=== PATIENT | female | born 1995 | race African-American/Black ===

== ENCOUNTER 2017-11-17 11:44 | Emergency (ER) | payer OTHER ==
[~2017-11-17] VITALS: Ht 157.5 cm; Wt 54.0 kg
[2017-11-17 11:52] VITALS: BP 121/73; PULSE 86; RESP 17; TEMP 97.7; O2SAT 100
== END 2017-11-17 15:40 | disposition left against medical advice (07) ==
LOC: NETRI 11:44
DX: Z53.21 Procedure and treatment not carried out due to patient leaving prior to being seen by health care provider (principal)
CPT/HCPCS: 99281